=== PATIENT | female | born 1965 | race Caucasian/White ===

== ENCOUNTER 2020-11-27 13:03 | Emergency (ER) | payer SELFPAY ==
[~2020-11-27] VITALS: Ht 167 cm; Wt 129.0 kg
[~2020-11-27 13:03] MED LIST: CLIN-62; HYDR1CAP2; IBUP-15
[2020-11-27] MEDS ORDERED: ASPIRIN 81 MG CHEW (CHILDREN'S ASA) PO ONE (13:30)
[2020-11-27 13:39] LABS: BASOPHILS % (AUTO) 0 % (0-10); EOSINOPHILS # (AUTO) 0.3 10^3/uL (0.0-0.3); EOSINOPHILS % (AUTO) 2 % (0-10); HEMATOCRIT 43 % (35-52); HEMOGLOBIN 13.8 g/dL (11.5-16.0); LYMPHOCYTES # (AUTO) 3.5 10^3/uL (1.0-4.0); LYMPHOCYTES % (AUTO) 23 % (12-44); MEAN CORPUSCULAR HEMOGLOBIN 29 pg (25-34); MEAN CORPUSCULAR HGB CONC 33 g/dL (32-36); MEAN CORPUSCULAR VOLUME 89 fL (80-99); MEAN PLATELET VOLUME 10.1 fL (9.0-12.2); MONOCYTES # (AUTO) 1.2 10^3/uL (0.0-1.0); MONOCYTES % (AUTO) 8 % (0-12); NEUTROPHILS # (AUTO) 9.9 10^3/uL (1.8-7.8); NEUTROPHILS % (AUTO) 66 % (42-75); PLATELET COUNT 310 10^3/uL (130-400); WHITE BLOOD COUNT 14.9 10^3/uL (4.3-11.0)
--- NOTE | 2020-11-27 13:43 | ED Respiratory ---
General Chief Complaint: Respiratory Problems Stated Complaint: BLOOD WORK, XRAYS, COVID + History of Present Illness Date Seen by Provider: Nov 27, 2020 Time Seen by Provider: 13:20 Initial Comments 55-year-old female presents for continued shortness of breath and yeast rash after being diagnosed with Covid on November 03, 2020. She has been treated with azithromycin, Levaquin and is currently taking doxycycline. She took dexamethasone for 10 days. She has not used an inhaler. She is taking vitamin C, D, and zinc. She is not taking aspirin. She complains of pain along the lower ribs. She denies any chest pain. She has been active since her diagnosis, including being on her elliptical daily.She reports shortness of hair however she has no labored breathing and her SaO2 after walking to the exam room is 99 to 100% on room air.She has noted a Nonproductive cough over the last 2 days Timing/Duration: intermittent Severity: mild Prior Episodes/Possible Cause: no prior episodes Associated Symptoms: chest pain/soreness, cough; No dizziness, No earache, No facial pain, No fever/chills, No headache, No lightheadedness, No muscle aches, No nasal congestion, No nasal drainage; shortness of breath Allergies and Home Medications Allergies Coded Allergies: Penicillins (Unverified Allergy, Mild, 02/09/09) Home Medications Fluconazole 150 Mg Tablet, 150 MG PO DAILY Take 1 tablet every 3 days. Prescribed by: BELEN VILLATORO on 11/27/20 1632 Patient Home Medication List Home Medication List Reviewed: Yes Review of Systems Review of Systems Constitutional: no symptoms reported, see HPI EENTM: see HPI, no symptoms reported Respiratory: see HPI, cough, short of breath, other (Lower Rib Pain with inspiration. ) Cardiovascular: no symptoms reported; No chest pain Musculoskeletal: no symptoms reported, see HPI Skin: see HPI, rash Past Hmciamm-Qiajrt-Hvltny Hx Past Med/Social Hx: Reviewed Nursing Past Med/Soc Hx Patient Social History Alcohol Use: Denies Use Smoking Status: Never a Smoker Recent Hopitalizations: No Past Medical History Surgeries: Yes (D&C X2 /) Respiratory: No Cardiac: No Neurological: No Reproductive Disorders: Yes Gastrointestinal: Yes Musculoskeletal: No Endocrine: No Psychosocial: No Blood Disorders: No Physical Exam Vital Signs - First Documented 11/27/20 13:10 Temp 36.4 Pulse 70 Resp 18 B/P (MAP) 142/89 (106) Pulse Ox 99 Capillary Refill : Height: '" Weight: lbs. oz. kg; BMI Method: General Appearance: WD/WN, no apparent distress Eyes: Bilateral Eye Normal Inspection, Bilateral Eye PERRL HEENT: PERRL/EOMI, normal ENT inspection, TMs normal, pharynx normal Neck: non-tender, full range of motion, supple, normal inspection Respiratory: chest non-tender, lungs clear, normal breath sounds, no respiratory distress Cardiovascular: normal peripheral pulses, regular rate, rhythm Gastrointestinal: normal bowel sounds, non tender, soft Extremities: normal range of motion, non-tender, normal inspection, no pedal edema, no calf tenderness, normal capillary refill Neurologic/Psychiatric: no motor/sensory deficits, alert, normal mood/affect, oriented x 3 Skin: rash (Erythematous rash to upper abdomen under breast and groin. Patient complains of pruritis. ) Progress/Results/Core Measures Suspected Sepsis SIRS Temperature: Pulse: Respiratory Rate: Laboratory Tests 11/27/20 13:23: White Blood Count 14.9H Blood Pressure / Mean: Laboratory Tests 11/27/20 13:23: Platelet Count 310 11/27/20 14:02: Creatinine 0.80, Total Bilirubin 0.8 Results/Orders Lab Results Laboratory Tests Test 11/27/20 13:23 11/27/20 14:02 11/27/20 15:25 Range/Units White Blood Count 14.9 H 4.3-11.0 10^3/uL Red Blood Count 4.79 3.80-5.11 10^6/uL Hemoglobin 13.8 11.5-16.0 g/dL Hematocrit 43 35-52 % Mean Corpuscular Volume 89 80-99 fL Mean Corpuscular Hemoglobin 29 25-34 pg Mean Corpuscular Hemoglobin Concent 33 32-36 g/dL Red Cell Distribution Width 13.5 10.0-14.5 % Platelet Count 310 130-400 10^3/uL Mean Platelet Volume 10.1 9.0-12.2 fL Immature Granulocyte % (Auto) 1 % Neutrophils (%) (Auto) 66 42-75 % Lymphocytes (%) (Auto) 23 12-44 % Monocytes (%) (Auto) 8 0-12 % Eosinophils (%) (Auto) 2 0-10 % Basophils (%) (Auto) 0 0-10 % Neutrophils # (Auto) 9.9 H 1.8-7.8 10^3/uL Lymphocytes # (Auto) 3.5 1.0-4.0 10^3/uL Monocytes # (Auto) 1.2 H 0.0-1.0 10^3/uL Eosinophils # (Auto) 0.3 0.0-0.3 10^3/uL Basophils # (Auto) 0.0 0.0-0.1 10^3/uL Immature Granulocyte # (Auto) 0.1 0.0-0.1 10^3/uL Neutrophils % (Manual) 63 % Lymphocytes % (Manual) 30 % Monocytes % (Manual) 6 % Eosinophils % (Manual) 1 % Blood Morphology Comment NORMAL D-Dimer 0.58 H 0.00-0.49 UG/ML Sodium Level 139 135-145 MMOL/L Potassium Level 3.9 3.6-5.0 MMOL/L Chloride Level 101 98-107 MMOL/L Carbon Dioxide Level 28 21-32 MMOL/L Anion Gap 10 5-14 MMOL/L Blood Urea Nitrogen 19 H 7-18 MG/DL Creatinine 0.80 0.60-1.30 MG/DL Estimat Glomerular Filtration Rate > 60 BUN/Creatinine Ratio 24 Glucose Level 75 70-105 MG/DL Calcium Level 8.8 8.5-10.1 MG/DL Corrected Calcium 9.0 8.5-10.1 MG/DL Total Bilirubin 0.8 0.1-1.0 MG/DL Aspartate Amino Transf (AST/SGOT) 16 5-34 U/L Alanine Aminotransferase (ALT/SGPT) 23 0-55 U/L Alkaline Phosphatase 45 40-136 U/L Lactate Dehydrogenase 155 125-220 U/L Troponin I < 0.028 <0.028 NG/ML C-Reactive Protein High Sensitivity 2.37 H 0.00-0.50 MG/DL Total Protein 6.8 6.4-8.2 GM/DL Albumin 3.8 3.2-4.5 GM/DL Procalcitonin 0.04 <0.10 NG/ML Urine Color YELLOW Urine Clarity CLEAR Urine pH 5.5 5-9 Urine Specific [place] >=1.030 1.016-1.022 Urine Protein NEGATIVE NEGATIVE Urine Glucose (UA) NEGATIVE NEGATIVE Urine Ketones NEGATIVE NEGATIVE Urine Nitrite NEGATIVE NEGATIVE Urine Bilirubin NEGATIVE NEGATIVE Urine Urobilinogen 0.2 < = 1.0 MG/DL Urine Leukocyte Esterase NEGATIVE NEGATIVE Urine RBC (Auto) NEGATIVE NEGATIVE Urine RBC NONE /HPF Urine WBC 0-2 /HPF Urine Squamous Epithelial Cells 2-5 /HPF Urine Crystals PRESENT H /LPF Urine Amorphous Sediment FEW KEV URATES H /LPF Urine Bacteria TRACE /HPF Urine Casts NONE /LPF Urine Mucus NEGATIVE /LPF Urine Yeast FEW H /HPF Urine Culture Indicated NO Micro Results Microbiology 11/27/20 Influenza Types A,B Antigen ([facility]) - Final, Complete My Orders Orders - BELEN VILLATORO Cbc With Automated Diff (11/27/20 13:25) Comprehensive Metabolic Panel (11/27/20 13:25) Fibrin Degradation Products (11/27/20 13:25) Procalcitonin (Pct) (11/27/20 13:25) Hs C Reactive Protein (11/27/20 13:25) Erythrocyte Sedimentation Rate (11/27/20 13:25) LDH (11/27/20 13:25) Ekg Tracing (11/27/20 13:25) Chest 1 View, Ap/Pa Only (11/27/20 13:25) Troponin I (11/27/20 13:25) Aspirin Chewable Tablet (Baby Aspirin Ch (11/27/20 13:30) Manual Differential (11/27/20 13:23) Fluconazole Tablet (Ed Only) (Diflucan T (11/27/20 14:30) Influenza A And B Antigens (11/27/20 15:11) Ceftriaxone For Iv Use (Rocephin For I (11/27/20 15:15) Ua Culture If Indicated (11/27/20 15:15) Medications Given in ED Current Medications Medications Dose Ordered Sig/Petra Route Start Time Stop Time Status Last Admin Dose Admin Aspirin 324 mg ONCE ONCE PO 11/27/20 13:30 11/27/20 13:31 DC 11/27/20 14:36 324 MG Ceftriaxone Sodium 2000 mg/ Sterile Water 20 ml @ 240 mls/hr ONCE ONCE IV 11/27/20 15:15 11/27/20 15:19 DC 11/27/20 15:54 240 MLS/HR Fluconazole 150 mg ONCE ONCE PO 11/27/20 14:30 11/27/20 14:31 DC 11/27/20 14:36 150 MG Vital Signs/I&O 11/27/20 13:10 Temp 36.4 Pulse 70 Resp 18 B/P (MAP) 142/89 (106) Pulse Ox 99 Capillary Refill : Progress Note : Time: 13:20 Progress Note Patient seen and evaluated will obtain labs, chest x-ray and EKG. 1400 labs essentially normal slight increase in WBC and CRP. Chest x-ray clear. Will give Diflucan 150 mg for Katey rash. 1415 Will obtain UA.No dyspnea, SaO2 98-100% on RA. 1500 Urine clean. Rocephin 2 gm IV, allergic to PCN but can take Keflex. 1600 Patient has remained stable since she presented to the emergency department. Her oxygen has remained 98% or higher. She has had no shortness of air on RA. Discharge instructions and return precautions reviewed with her. All questions answered. ECG Initial ECG Impression Date: Nov 27, 2020 Initial ECG Impression Time: 13:28 Initial ECG Rate: 63 Initial ECG Rhythm: Normal Sinus Initial ECG Intervals: Normal Initial ECG Intervals NJ 148, QRSD 120, QT 416, QTc 426. [place] P 12, QRS -10, T 23. Initial ECG Impression: Normal Initial ECG Comparisson: No Previous ECG Available Diagnostic Imaging Diagonstic Imaging: Xray Plain Films/CT/US/NM/MRI: chest Comments NAME: [facility]RA[facility] REC#: [id number] PT STATUS: REG ER : 1965 PHYSICIAN: BELEN VILLATORO ADMIT DATE: 11/27/20/ER Draft Date of Exam:11/27/20 CHEST 1 VIEW, AP/PA ONLY INDICATION: Shortness of air COMPARISON: None available TECHNIQUE: Single radiograph of the chest dated 08/27/2021 FINDINGS: The cardiac silhouette is within normal limits in size. No significant pulmonary vascular congestion. The lungs are clear of focal pulmonary opacity. No significant pleural effusion. No pneumothorax. No acute osseous abnormality. IMPRESSION: No acute cardiopulmonary abnormality. Dictated on workstation # [id number] Dict: 11/27/20 1402 Trans: 11/27/20 1404 [facility] [id number] Interpreted by: ROBERT CARDENAS MD Electronically signed by: Departure Impression Primary Impression: Dyspnea Qualified Codes: R06.02 - Shortness of breath Additional Impressions: Post-COVID syndrome Katey infection Pleurisy Disposition: 01 HOME, SELF-CARE Condition: Improved Departure-Patient Inst. Decision time for Depature: 16:00 Referrals: ABRAHAM WYNN DO (PCP/Family) Primary Care Physician Patient Instructions: Coronavirus Disease 2019 (COVID-19) (DC), Pleuritic Chest Pain (DC), Yeast Infection (DC) Add. Discharge Instructions: Eat 1 cup of activity a yogurt daily. Ibuprofen 600 mg every 8 hours for pleuritic pain. Take Aspirin 81 mg daily. Continue antibiotics as prescribed by Dr. Wynn. Take Diflucan 1 tablet every 3 days. Increase water intake. Air exposure to areas of rash. Follow-up with Dr. Wynn if symptoms are not improving or worsen. Return to the emergency department for new, urgent healthcare needs. All discharge instructions reviewed with patient and/or family. Voiced understanding. Scripts Fluconazole (Diflucan) 150 Mg Tablet 150 MG PO DAILY, #3 TAB 0 Refills Take 1 tablet every 3 days. Prov: BELEN VILLATORO 11/27/20 BELEN VILLATORO Nov 27, 2020 13:43
--- NOTE | 2020-11-27 14:04 | Diagnostic Imaging Report ---
INDICATION: Shortness of air COMPARISON: None available TECHNIQUE: Single radiograph of the chest dated 08/27/2021 FINDINGS: The cardiac silhouette is within normal limits in size. No significant pulmonary vascular congestion. The lungs are clear of focal pulmonary opacity. No significant pleural effusion. No pneumothorax. No acute osseous abnormality. IMPRESSION: No acute cardiopulmonary abnormality. Dictated by: Dictated on workstation # [id number]
[2020-11-27 14:27] LABS: EOSINOPHILS % (MANUAL) 1 %; LYMPHOCYTES % (MANUAL) 30 %; MONOCYTES % (MANUAL) 6 %; NEUTROPHILS % (MANUAL) 63 %; RBC MORPH NORMAL
[2020-11-27] MEDS ORDERED: FLUCONAZOLE 150 MG TABLET (ED ONLY) PO ONE (14:30)
[2020-11-27 15:02] LABS: ALANINE AMINOTRANSFERASE 23 U/L (0-55); ALBUMIN 3.8 GM/DL (3.2-4.5); ALKALINE PHOSPHATASE 45 U/L (40-136); BILIRUBIN,TOTAL 0.8 MG/DL (0.1-1.0); BUN/CREATININE RATIO 24; CALCIUM 8.8 MG/DL (8.5-10.1); CARBON DIOXIDE 28 MMOL/L (21-32); CHLORIDE 101 MMOL/L (98-107); GFR ESTIMATED > 60; GLUCOSE 75 MG/DL (70-105); POTASSIUM 3.9 MMOL/L (3.6-5.0); SODIUM 139 MMOL/L (135-145); TOTAL PROTEIN 6.8 GM/DL (6.4-8.2)
[2020-11-27] MEDS ORDERED: cefTRIAXone FOR IV USE 2,000 MG in WATER (STERILE) FOR INJECTION 20 ML IV ONE (15:15)
[2020-11-27 15:32] LABS: BILIRUBIN,URINE NEGATIVE (NEGATIVE); CLARITY,URINE CLEAR; COLOR,URINE YELLOW; GLUCOSE, URINE (UA) NEGATIVE (NEGATIVE); KETONES,URINE NEGATIVE (NEGATIVE); LEUKOCYTE ESTERASE ,URINE NEGATIVE (NEGATIVE); NITRITE,URINE NEGATIVE (NEGATIVE); PH,URINE 5.5 (5-9); PROTEIN,URINE NEGATIVE (NEGATIVE)
[2020-11-27 15:45] LABS: AMORPHOUS SEDIMENT,UR FEW AMOR URATES /LPF; BACTERIA,URINE TRACE /HPF; WBC,URINE 0-2 /HPF; YEAST,URINE FEW /HPF
[2020-11-27] MEDS ORDERED: FLUC150T PO (16:32)
[2020-11-27 17:06] VITALS: BP 130/75
[2020-11-28 15:25] LABS: ERYTHROCYTE SEDIMENTATION RATE 9 MM/HR (0-30)
== END 2020-11-27 17:06 | disposition home or self-care (01) ==
LOC: EDUNIT# 13:03 → ER 13:06
DX: U07.1 COVID-19 (principal); R06.00 Dyspnea, unspecified; R09.1 Pleurisy; B37.2 Candidiasis of skin and nail; R05 Cough; Z73.0 Burn-out; Z88.0 Allergy status to penicillin; Z79.2 Long term (current) use of antibiotics; Z79.899 Other long term (current) drug therapy
CPT/HCPCS: 36415; 71045; 80053; 81000; 83615; 84145; 84484; 85007; 85027; 85379; 85652; 86141; 87804; 93005

== ENCOUNTER 2023-08-24 22:10 | Emergency (ER) | payer SELFPAY ==
[~2023-08-24] VITALS: Ht 170.2 cm; Wt 135.0 kg
[~2023-08-24 22:10] MED LIST changes: +FLUC150T PO
[2023-08-24 22:23] VITALS: BP 184/94
[2023-08-24] MEDS ORDERED: KETOROLAC INJ 30 MG/ML VIAL IVP ONE (22:30)
[2023-08-24] MEDS ORDERED: ORPHENADRINE 60 MG/2 ML AMP (ED ONLY) IV ONE (22:30)
--- NOTE | 2023-08-24 22:35 | ED Fall/Injury ---
General Stated Complaint: FALL AT HOME, LT SIDE INJ, LT LEG PAIN Source: patient History of Present Illness Date Seen by Provider: Aug 24, 2023 Time Seen by Provider: 22:20 Initial Comments PT ARRIVES VIA POV FROM HOME AROUND [address], PT WAS STEPPING UP A STEP--GOING [place] INTO THE HOUSE, WAS STEPPING WITH HER LEFT FOOT FIRST, AND HER LEFT LEG SLID FORWARD, AND SHE FELL/ "DID THE SPLITS" --STATS IT FEELS LIKE SHE "PULLED EVERYTHING" IN HER LEFT LEG/BUTTOCKS AREA C/O PAIN TO LEFT LOWER BACK, LEFT BUTTOCKS, LEFT HIP, LEFT POSTERIOR THIGH DOWN TO LEFT POSTERIOR KNEE LEFT CALF AND FOOT FEEL TINGLY NO LOSS OF BOWEL OR BLADDER CONTROL DID NOT HIT HEAD OR HAVE LOSS OF CONSCIOUSNESS NO OTHER INJURIES FROM THE INCIDENT HAS NOT TAKEN ANYTHING FOR PAIN NO PRIOR INJURIES OR PROBLEMS WITH HER BACK OR HIP OR LEG SHE DID HAVE LEFT FOOT SURGERY IN 2010 AND RIGHT ACHILLES TENDON SURGERY EARLIER THIS YEAR DENIES ANY MEDICAL PROBLEMS AND DOES NOT TAKE DAILY MEDICATIONS PCP: DR. WYNN Allergies and Home Medications Allergies Coded Allergies: Penicillins (Unverified Allergy, Mild, 02/09/09) Patient Home Medication List Home Medication List Reviewed: Yes Clindamycin Hcl (Cleocin Cap) 150 Mg Cap, (Reported) Entered as Reported by: EZRA THOMSON on 02/09/091806 Cyclobenzaprine HCl (Cyclobenzaprine HCl) 10 Mg Tablet, 10 MG PO Q8H PRN for SPASMS Prescribed by: RANDY NICOLE on 08/25/23120 Fluconazole (Diflucan) 150 Mg Tablet, 150 MG PO DAILY Prescribed by: BELEN VILLATORO on 11/27/20 1632 Hydrocodone Bit/Acetaminophen (Hydrocet 5-500 Capsule) 1 Each Capsule, (Reported) Entered as Reported by: EZRA THOMSON on 02/09/091807 Ibuprofen (Advil) 200 Mg Tablet, (Reported) Entered as Reported by: EZRA THOMSON on 02/09/091806 Naproxen (Naproxen) 500 Mg Tablet.dr 500 MG PO BID Prescribed by: RANDY NICOLE on 08/25/23 012 Tramadol HCl (Tramadol HCl) 50 Mg Tablet, 50 MG PO Q4H Prescribed by: RANDY NICOLE on 08/25/23 012 Review of Systems Review of Systems Constitutional: no symptoms reported Respiratory: no symptoms reported Cardiovascular: no symptoms reported Gastrointestinal: no symptoms reported Genitourinary: no symptoms reported Musculoskeletal: see HPI Skin: no symptoms reported Psychiatric/Neurological: See HPI Past Gtiodzv-Lfgsyf-Amunld Hx Patient Social History Tobacco Use?: No Use of E-Cig and/or Vaping dev: No Substance use?: No Alcohol Use?: No Past Medical History Surgeries: Yes (D&C X2 /;LEFT FOOT 2010; R ACHILLES TENDON 2022) Gallbladder, Orthopedic, Tubal Ligation Respiratory: No Cardiac: No Neurological: No Reproductive Disorders: Yes MANAGER EQUIPMENT History: Tubal Ligation, Menopausal Genitourinary: No Gastrointestinal: Yes (S/P PRICILA) Gall Bladder Disease Musculoskeletal: Yes (LEFT FOOT SX; RIGHT ACHILLES TENDON SX) Endocrine: Yes (MORBID OBESITY) HEENT: No Psychosocial: No Integumentary: No Blood Disorders: No Physical Exam Vital Signs Capillary Refill : Height, Weight, BMI Height: '" Weight: lbs. oz. kg; 46.00 BMI Method: General Appearance: WD/WN, no apparent distress, obese Neck: normal inspection Cardiovascular: normal peripheral pulses, regular rate, rhythm, no murmur Respiratory: normal breath sounds Gastrointestinal: non tender Back: no CVA tenderness, other (TENDERNESS TO LEFT LOWER BACK/BUTTOCKS AREA) Extremities: normal capillary refill, other (DIFFUSE TENDERNESS TO LEFT BUTTOCKS, LEFT POSTERIOR HIP, LEFT POSTERIOR THIGH AREAS. NO EXTERNAL EVIDENCE OF TRAUMA. MOTOR/SENSORY/VASCULAR INTACT. 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, no motor/sensory deficits, alert, normal mood/affect, oriented x 3 Skin: normal color, warm/dry Progress/Results/Core Measures Results/Orders My Orders Orders - RANDY INCOLE DO Ed Iv/Invasive Line Start (08/24/23 22:27) Ct Pelvis Wo (08/24/23 22:27) Ketorolac Injection (Ketorolac Injection (08/24/23 22:30) Orphenadrine Inj (Ed Only) (Orphenadrine (08/24/23 22:30) Ct Lumbar Spine Wo (08/25/23 00:01) Femur, Left, 2 Views (08/25/23 00:01) Pelvis With Left Hip 2-3 Views (08/25/23 00:01) Rx-Cyclobenzaprine Tablet (Rx-Flexeril T (08/25/23 01:12) Rx-Naproxen (Rx-Naprosyn) (08/25/23 01:12) Rx-Tramadol Hcl (Rx-Ultram) (08/25/23 01:12) Naproxen Tablet (Naproxen Tablet) (08/25/23 01:45) Medications Given in ED Current Medications Medications Dose Ordered Sig/Petra Route Start Time Stop Time Status Last Admin Dose Admin Ketorolac Tromethamine 30 mg ONCE ONCE IVP 08/24/23 22:30 08/24/23 22:31 DC 08/24/23 22:44 30 MG Naproxen 500 mg ONCE ONCE PO 08/25/23 01:45 08/25/23 01:46 DC 08/25/23 01:48 500 MG Orphenadrine Citrate 60 mg ONCE ONCE IV 08/24/23 22:30 08/24/23 22:31 DC 08/24/23 22:44 60 MG Progress Progress Note : Progress Note VITALS STABLE GIVEN: -TORADOL -NORFLEX PAIN IMPROVED AND PT ABLE TO AMBULATE ON HER OWN AT DISMISSAL XRAYS AND CT SCANS DO NOT SHOW ANY ACUTE PROCESS, PENDING RADIOLOGIST REVIEW DISCUSSED TEST RESULTS, ANTICIPATED COURSE, SYMPTOMATIC TREATMENT, MEDICATIONS, NEED FOR FOLLOW UP AND RETURN PRECAUTIONS REVIEWED PRIOR RECORDS INCLUDING ER VISITS, ADMITS/H&P'S/CONSULTS/DISCHARGE SUMMARIES, TESTS/PROCEDURES Diagnostic Imaging Comments XRAYS--PENDING RADIOLOGIST REVIEW PELVIS/LEFT HIP--NO ACUTE PROCESS LEFT FEMUR--NO ACUTE PROCESS CT LUMBAR SPINE--PER [facility] VIA FAX AT 0101 -NO ACUTE PROCESS, MULTILEVEL DEGENERATIVE DISEASE CT PELVIS--PER [facility] VIA FAX AT 0106 -NO ACUTE PROCESS Reviewed: Reviewed by Me Departure Impression Primary Impression: Strain of left hip and thigh Disposition: HOME, SELF-CARE Condition: Stable Departure-Patient Inst. Decision time for Depature: 01:10 Referrals: ABRAHAM WYNN DO (PCP/Family) Primary Care Physician Patient Instructions: Muscle Strain (DC), Leg Muscle Strain ED Add. Discharge Instructions: ALTERNATE ICE AND HEAT TO SORE AREAS AT 20 MINUTE INTERVALS ACTIVITIES TOLERATED FOLLOW UP WITH YOUR DR IN 1 WEEK IF NO BETTER Scripts Tramadol HCl (Tramadol HCl) 50 Mg Tablet 50 MG PO Q4H for Pain, #20 TAB Prov: RANDY NICOLE DO 08/25/23 Naproxen (Naproxen) 500 Mg Tablet.dr 500 MG PO BID, #20 TAB Prov: RANDY NICOLE DO 08/25/23 Cyclobenzaprine HCl (Cyclobenzaprine HCl) 10 Mg Tablet 10 MG PO Q8H PRN for SPASMS, #15 TAB 0 Refills Prov: RANDY NICOLE DO 08/25/23 RANDY NICOLE DO Aug 24, 2023 22:35
[2023-08-25] MEDS ORDERED: RX-NAPROXEN (NAPROSYN) 250 MG TAB PPK#4 PO STA (01:12)
[2023-08-25] MEDS ORDERED: RX-CYCLOBENZAPRINE 10 MG (FLEXERIL) TAB PPK#3 PO STA (01:12)
[2023-08-25] MEDS ORDERED: NAPR500T8 PO (01:21)
[2023-08-25] MEDS ORDERED: TRAM50TA3 PO (01:21)
[2023-08-25] MEDS ORDERED: CYCL10TA25 PO (01:21)
[2023-08-25] MEDS ORDERED: NAPROXEN 250 MG TABLET PO ONE (01:45)
--- NOTE | 2023-08-25 06:22 | Diagnostic Imaging Report ---
CLINICAL INDICATION: Patient status post fall with posterior left hip and left leg pain. EXAMS: 1: X-ray of the left femur, 4 views. 2: X-ray of the pelvis and left hip, 3 views. COMPARISON: None. FINDINGS: There is no acute fracture or dislocation. The bilateral femoroacetabular joint regions are intact. There is no left knee effusion. There is no significant bony abnormality involving the left femur or left knee. There is mild enthesopathy involving the bilateral greater trochanter regions. There are degenerative spurs involving the lower lumbar spine. Phleboliths are seen in the pelvis. IMPRESSION: X-rays of the pelvis/left hip and left femur show no acute fracture or dislocation. Dictated by: Dictated on workstation # [id number]
--- NOTE | 2023-08-25 07:19 | Diagnostic Imaging Report ---
CLINICAL INDICATIONS: Patient complains of left posterior hip and leg pain after fall. Patient slipped on floor stepping into her bathroom from the garage. EXAM: Axial CT scan of the pelvis performed without IV contrast. Sagittal and coronal reformatted images are created. Auto Exposure Controls were utilized during the CT exam to meet ALARA standards for radiation dose reduction. COMPARISON: X-ray of the pelvis and left hip dated 08/25/2023. FINDINGS: There is no acute fracture or dislocation involving the hips, pelvis, or sacrum. The sacroiliac joints are unremarkable. There is lower lumbar spine degenerative spurs and lower lumbar spine facet arthropathy. There is diverticulosis involving the sigmoid colon and descending colon with no CT evidence of diverticulitis. There is no significant intrapelvic or extrapelvic soft tissue abnormality. There is a fat-containing periumbilical hernia seen with a mouth of roughly 3.6 cm in transverse dimensions and 2.8 cm in craniocaudal dimensions. There is no adjacent inflammation seen. IMPRESSION: 1: There is no acute fracture or dislocation. 2: There is a small fat-containing periumbilical hernia. Dictated by: Dictated on workstation # [id number]
--- NOTE | 2023-08-25 07:24 | Diagnostic Imaging Report ---
CLINICAL INDICATIONS: The patient complains of left posterior hip and leg pain after a fall. EXAM: Axial CT scan of the lumbar spine performed without IV contrast. Sagittal and coronal reformatted images were created. COMPARISON: None. FINDINGS: There is no acute lumbar spine fracture or dislocation. There is multilevel lumbar spine degenerative disease. There are hypertrophic spurs anteriorly involving the lumbar spine. There is mild left curvature of the lumbar spine. There is lower lumbar spine facet arthropathy. There is diffuse low-density seen throughout the visualized portions of the liver, likely related to diffuse fatty infiltration. The gallbladder is surgically absent. There is no significant paraspinal soft tissue abnormality. There is diverticulosis involving the visualized portions of the descending colon and sigmoid colon. There is no CT evidence of diverticulitis. L1-L2: There is mild bilateral facet arthropathy. There appears to be a mild diffuse disk bulge. There is at least mild left neuroforaminal narrowing. There is no significant central canal or right neuroforaminal narrowing. L2-L3: There appears to be a mild diffuse disk bulge. There is mild bilateral facet arthropathy. There is at least mild to moderate bilateral neuroforaminal narrowing. L3-L4: There is a diffuse disk bulge and mild to moderate bilateral facet arthropathy. There is at least moderate central canal stenosis. There is severe left neuroforaminal narrowing and moderate to severe right neuroforaminal narrowing. L4-L5: There is a diffuse disk bulge and severe left facet arthropathy and moderate right facet arthropathy. There is at least moderate central canal stenosis. There is severe bilateral neuroforaminal narrowing. L5-S1: There is mild to moderate left neuroforaminal narrowing. There is no significant central canal or right neuroforaminal narrowing. There is mild bilateral facet arthropathy. IMPRESSION: 1: There is no acute lumbar spine fracture or dislocation. 2: There are multilevel lower lumbar spine degenerative disease, as described above. 3: There is diffuse fatty infiltration of the liver. 4: There is diverticulosis with no CT evidence of diverticulitis, as visualized. I agree with the [facility] report. Dictated by: Dictated on workstation # [id number]
== END 2023-08-25 01:51 | disposition home or self-care (01) ==
LOC: EDUNIT# 22:10 → ER 22:15
DX: S76.012A Strain of muscle, fascia and tendon of left hip, initial encounter (principal); S76.912A Strain of unspecified muscles, fascia and tendons at thigh level, left thigh, initial encounter; E66.01 Morbid (severe) obesity due to excess calories; Z68.42 Body mass index [BMI] 45.0-49.9, adult; W10.9XXA Fall (on) (from) unspecified stairs and steps, initial encounter; Y92.009 Unspecified place in unspecified non-institutional (private) residence as the place of occurrence of the external cause
CPT/HCPCS: 72131; 72192; 73552